=== PATIENT | male | born 1995 | race African-American/Black ===

== ENCOUNTER 2017-05-24 01:19 | Emergency (ER) | payer OTHER ==
[2017-05-24] MEDS: NS 1,000 ML IV (01:45)
[2017-05-24 02:06] LABS: ETHYL ALCOHOL (ETHANOL) 0.292 % (0.000-0.010)
== END 2017-05-24 02:45 | disposition home or self-care (01) ==
LOC: M ED 01:19
DX: F10.220 Alcohol dependence with intoxication, uncomplicated (principal); Y90.1 Blood alcohol level of 20-39 mg/100 ml
CPT/HCPCS: G0480